=== PATIENT | male | born 2005 | race African-American/Black ===

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

== ENCOUNTER 2025-01-30 19:25 | Emergency (ER) | payer MEDICAID ==
[~2025-01-30] VITALS: Ht 185.4 cm; Wt 63.5 kg
[~2025-01-30 19:25] MED LIST changes: +NITR-87 PO
--- NOTE | 2025-01-30 19:57 | ED.PDOC ---
History of Present Illness HPI Comments 19 y/o M is BIBA for nonradiating, epigastric abdominal pain, nausea, vomiting, and hematemesis. Patient reports on symptoms beginning with nausea after eating In-N-Out, last night. Today, remaining symptoms ensued after consuming Pizza, this evening. Pain is rated a 6/10 in severity. Last emesis patient had prior to calling EMS had blood in it. He denies having any diarrhea, constipation, urinary symptoms, fever, chills, or further associated symptoms. Per EMS report, all vitals were noted to have been stable and within normal limits. Patient has a history of marijuana abuse Chief Complaint: Nausea/Vomiting Time Seen by MD: 19:30 Primary Care Provider: NONE Reviewed Notes: Nurses Notes, Paster Supervisor Notes, Medications, Allergies Allergies: Coded Allergies: No Known Drug Allergy (Verified Allergy, Unknown, 10/18/18) Home Meds Active Scripts Nitrofurantoin Monohydrate Mac (Macrobid) 100 Mg Cap, 100 MG PO BID for 7 Days, #14 CAP Prov:SHAWN SMITHP 09/02/24 Hydroxyzine Hcl (Hydroxyzine Hcl) 25 Mg Tab, 1 TAB PO TID PRN, #30 TAB Prov:SHAWN SMITH 08/15/24 Information Source: Patient, Emergency Med Personnel Mode of Arrival: EMS Severity: Moderate Timing: Hours Duration: Since onset Prehospital treatment: 12 Lead 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, 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, 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 Past Medical History PAST MEDICAL HISTORY: Denies Surgical History: Denies all surgeries Family History Family History: No family hx of Heart trevor, No family hx of HTN, No family hx of Lung trevor, No family hx of Stroke Social History Smoker: Non-Smoker Alcohol: Rarely Drugs: Marijuana, Other Lives In: Home All Other Systems: Reviewed and Negative (Comprehensive systems review obtained and negative except for what is stated in the HPI.) Physical Exam General Appearance: No Apparent Distress, Normal HEENT: Normal ENT Inspection, Pharynx Normal, TMs Normal Neck: Full Range of Motion, Non-Tender, Normal, Normal Inspection Respiratory: Chest Non-Tender, Lungs Clear, No Accessory Muscle Use, No Respiratory Distress, Normal Breath Sounds Cardiovascular: No Edema, No JVD, No Murmur, No Gallop, Normal Peripheral Pulses, Regular Rate/Rhythm Breast Exam: Deferred Gastrointestinal: Epigastric (Tenderness upon palpation), No Organomegaly, No Pulsatile Mass, Normal Bowel Sounds, Soft, Tenderness (Epigastric area) Genitalia: Deferred Pelvic: Deferred Rectal: Deferred Extremities: No calf tenderness, Normal capillary refill, Normal inspection, Normal range of motion, Non-tender, No pedal edema Musculoskeletal : Apperance: Normal Neurologic: Alert, principal software 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 Was a procedure done?: No EKG EKG : Pulse Rate (adult): 115 [place]: Normal Cardiac Rhythm: ST Block: None Hypertrophy: JASWINDER ST: Normal (0) Differential Dx Considerations may include: Gastritis, gastroenteritis, PUD, GERD, cholecystitis, cholelithiasis, spoiled food, viral syndrome, dehydration, electrolyte imbalance, cannabinoid hyperemesis syndrome, among others X-Ray, Labs, Meds, VS Vital Signs Date Time Temp Pulse Resp B/P (MAP) Pulse Ox O2 Delivery O2 Flow Rate FiO2 01/30/25 20:28 115 01/30/25 20:09 16 Room Air* 0 21 01/30/25 19:58 115 01/30/25 19:38 97.4 102 16 112/83 (93) 98 97.4 Lab Test 01/30/25 19:45 Range/Units White Blood Count 12.0 H 4.4-10.8 10^3/uL Red Blood Count 5.98 H 4.5-5.90 10^6/uL Hemoglobin 17.1 13.5-17.5 g/dL Hematocrit 49.5 41.0-53.0 % Mean Corpuscular Volume 82.9 80.0-100.0 fL Mean Corpuscular Hemoglobin 28.6 28.0-32.0 pg Mean Corpuscular Hemoglobin Concent 34.5 32.0-36.0 g/dL Red Cell Distribution Width 13.3 11.8-14.3 % Platelet Count 211 140-450 10^3/uL Mean Platelet Volume 7.0 6.9-10.8 fL Neutrophils (%) (Auto) 86.3 H 37.0-80.0 % Lymphocytes (%) (Auto) 4.5 L 10.0-50.0 % Monocytes (%) (Auto) 8.9 0.0-12.0 % Eosinophils (%) (Auto) 0.2 0.0-7.0 % Basophils (%) (Auto) 0.1 0.0-2.0 % Neutrophils # (Auto) 10.3 H 1.6-8.6 10 ^3/uL Lymphocytes # (Auto) 0.5 0.4-5.4 10 ^3/uL Monocytes # (Auto) 1.1 0-1.3 10 ^3/uL Eosinophils # (Auto) 0 0-0.8 10 ^3/uL Basophils # (Auto) 0 0-0.2 10 ^3/uL Nucleated Red Blood Cells 0.1 % Sodium Level 140 136-145 mmol/L Potassium Level 4.1 3.5-5.1 mmol/L Chloride Level 103 98-107 mmol/L Carbon Dioxide Level 25 20-31 mmol/L Anion Gap 12 5-15 Blood Urea Nitrogen 12 9-23 mg/dL Creatinine 1.38 H 0.700-1.30 mg/dL Glomerular Filtration Rate Calc 76 >90 mL/min BUN/Creatinine Ratio 8.7 L 10.0-20.0 Serum Glucose 101 74-106 mg/dL Calcium Level 10.2 8.7-10.4 mg/dL Total Bilirubin 1.1 H 0.2-1.0 mg/dL Aspartate Amino Transferase (AST) 22 <34 U/L Alanine Aminotransferase (ALT) 16 7-40 U/L Alkaline Phosphatase 64 46-116 U/L Total Protein 8.3 H 5.7-8.2 g/dL Albumin 5.3 H 3.2-4.8 g/dL Lipase 24 12-53 U/L [place] [id number] Ph: [phone] DIAGNOSTIC IMAGING Diagnostic Imaging Report : [id number] Signed PATIENT: BRIAN WARD ACCT: [id number] UNIT: [id number] : 2005 LOC: ER ROOM / BED: / AGE / SEX: 19 / M ADM STATUS: REG ER SERVICE 11 ORDERING PHYSICIAN: LU BATISTA MD PROCEDURE(s): CXRP - CHEST PORTABLE REASON: epigastric ORDER NUMBER(s): [id number], ACCESSION NUMBER(s): [id number] CHEST RADIOGRAPH Indication: epigastric Technique: Single frontal view of the chest was obtained Comparison: XY CHEST PORTABLE on DOS: 08/14/24, XY CHEST XRAY 1 VIEW on DOS: 02/19/23 FINDINGS: Lines and Tubes: None Lungs: No focal consolidation. Pleura: No effusion. No pneumothorax. Cardiomediastinal contours: Unremarkable Bones: No acute osseous abnormality. IMPRESSION: 1. No acute cardiopulmonary disease. ATED BY: FARZANA HOLDEN Jr., DO DICTATED DATE/TIME: 01/30/252038 SIGNED BY: FARZANA HOLDEN Jr., SIGNED DATE/TIME: 01/30/252038 CC: Time of 1ST Reevaluation: 20:00 Reevaluation 1ST: Unchanged Patient Education/Counseling: Diagnosis, Treatment, Need For Follow Up Family Education/Counseling: No Family Present Additional Information Previous visits reviewed: N September 01, 2024 encounter for UTI The following tests were ordered, and results were reviewed by me: Chest x-ray, lipase, CMP, CBC Additional Information was gathered from interviewing the following independent historians: EMS I reviewed and agreed with the following test results read by other providers: Chest x-ray I discussed treatment and results with medical personnel and: patient SEPSIS Sepsis Screen Date sepsis recognized/suspect: Jan 30, 2025 Time Sepsis recognized/suspect: 1939 Recent Procedure: No On Antibiotic Therapy: No Respiratory Rate >20: No Heart Rate >90: Yes Temp<36 C (96.8 F) or >38.3 C: No SBP <90 or MAP <65 mmHG: No New Acute Mental Status Change: No Is the patient on CPAP, BIPAP,: No Physician Orders Chest Portable (01/30/25 20:12) Vital Signs Date Time Temp Pulse Resp B/P (MAP) Pulse Ox O2 Delivery O2 Flow Rate FiO2 01/30/25 20:28 115 01/30/25 20:09 16 Room Air* 0 21 01/30/25 19:58 115 01/30/25 19:38 97.4 102 16 112/83 (93) 98 97.4 Laboratory Tests Test 01/30/25 19:45 White Blood Count 12.0 10^3/uL (4.4-10.8) H Departure 1 Departure Time of Disposition: 22:36 (Patient likely with a viral gastroenteritis. We will discharge patient home with outpatient follow up) Impression: Primary Impression: Gastroenteritis Disposition: HOME / SELF CARE / HOMELESS Condition: Stable Additional Instructions: You likely have gastroenteritis. It is important to stay well hydrated and well rested. This usually resolves within 1 week. If your symptoms worsen or you have any other concerns please return to the ER. Discharged With: Self Critical Care Note Critical Care Time?: No Stability Stability form required: No Heart Score Heart Score: Heart Score Response (Comments) Value History N/A 0 EKG N/A 0 Age N/A 0 Risk Factors N/A 0 Troponin N/A 0 Total 0 I personally scribed for LU BATISTA MD ([email or web address]) on 01/30/25 at 19:57. Electronically submitted by Nadeem Aj ([email or web address]). I personally scribed for LU BATISTA MD ([email or web address]) on 01/30/25 at 20:28. Electronically submitted by Nadeem Aj ([email or web address]). I personally scribed for LU BATISTA MD ([email or web address]) on 01/30/25 at 20:32. Electronically submitted by Nadeem Aj ([email or web address]). I personally scribed for LU BATISTA MD ([email or web address]) on 01/30/25 at 21:33. Electronically submitted by Nadeem Aj ([email or web address]). LU BATISTA MD Jan 30, 2025 19:57
[2025-01-30 20:01] LABS: Basophils # (auto) 0 10 ^3/uL (0-0.2); Basophils % (auto) 0.1 % (0.0-2.0); Eosinophils # (auto) 0 10 ^3/uL (0-0.8); Eosinophils % (auto) 0.2 % (0.0-7.0); Hematocrit 49.5 % (41.0-53.0); Hemoglobin 17.1 g/dL (13.5-17.5); Lymphocytes # (auto) 0.5 10 ^3/uL (0.4-5.4); Lymphocytes % (auto) 4.5 % (10.0-50.0); Mean Corpuscular Hemoglobin 28.6 pg (28.0-32.0); Mean Corpuscular Hgb Conc. 34.5 g/dL (32.0-36.0); Mean Corpuscular Volume 82.9 fL (80.0-100.0); Monocytes # (auto) 1.1 10 ^3/uL (0-1.3); Monocytes % (auto) 8.9 % (0.0-12.0); Neutrophils # (auto) 10.3 10 ^3/uL (1.6-8.6); Neutrophils % (auto) 86.3 % (37.0-80.0); Nucleated Red Blood Cells % 0.1 %; Platelet Count (auto) 211 10^3/uL (140-450); Red Blood Cells 5.98 10^6/uL (4.5-5.90); Red Cell Distribution Width 13.3 % (11.8-14.3)
[2025-01-30] MEDS: SODIUM CHLORIDE 0.9% 1,000 ML IV ONE (20:08)
[2025-01-30] MEDS: PANTOPRAZOLE 40 MG/10 ML VIAL INJ IV ONE (20:08)
[2025-01-30 20:09] VITALS: RESP 16
[2025-01-30] MEDS: ONDANSETRON HCL 4 MG/2 ML VIAL IV ONE (20:09)
[2025-01-30 20:19] LABS: Alanine Aminotransferase 16 U/L (7-40); Alkaline Phosphatase 64 U/L (46-116); Anion Gap 12 (5-15); Aspartate Aminotransferase 22 U/L (<34); BUN/Creatinine Ratio 8.7 (10.0-20.0); Bilirubin, Total 1.1 mg/dL (0.2-1.0); Blood Urea Nitrogen 12 mg/dL (9-23); Calcium 10.2 mg/dL (8.7-10.4); Carbon Dioxide 25 mmol/L (20-31); Chloride 103 mmol/L (98-107); Glucose 101 mg/dL (74-106); Lipase 24 U/L (12-53); Potassium 4.1 mmol/L (3.5-5.1); Sodium 140 mmol/L (136-145)
[2025-01-30 20:20] LABS: Albumin 5.3 g/dL (3.2-4.8); Total Protein 8.3 g/dL (5.7-8.2)
--- NOTE | 2025-01-30 20:41 | DVH ---
CHEST RADIOGRAPH Indication: epigastric Technique: Single frontal view of the chest was obtained Comparison: XY CHEST PORTABLE on DOS: 08/14/24, XY CHEST XRAY 1 VIEW on DOS: 02/19/23 FINDINGS: Lines and Tubes: None Lungs: No focal consolidation. Pleura: No effusion. No pneumothorax. Cardiomediastinal contours: Unremarkable Bones: No acute osseous abnormality. IMPRESSION: 1. No acute cardiopulmonary disease.
--- NOTE | 2025-01-30 21:04 | ECG ---
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
== END 2025-01-30 23:20 | disposition home or self-care (01) ==
LOC: ER 19:25 → EDBD 19:25 → EDUNIT# 19:25 → ER 22:50
DX: K52.9 Noninfective gastroenteritis and colitis, unspecified (principal); F12.90 Cannabis use, unspecified, uncomplicated; F10.90 Alcohol use, unspecified, uncomplicated; Z79.899 Other long term (current) drug therapy; Y90.9 Presence of alcohol in blood, level not specified
CPT/HCPCS: 36415; 71045; 80053; 83690; 85025; 93005